=== PATIENT | female | born 1960 | race Hispanic/Latino ===

== ENCOUNTER 2020-06-10 09:20 | Outpatient (RCR) | payer OTHER | END 2020-06-17 | LOC: OT 09:20 | PROVIDERS: ATTEND Specialist | DX: M75.42 Impingement syndrome of left shoulder (principal) | CPT/HCPCS: 36415; 82948 ==

== ENCOUNTER 2020-07-10 15:51 | Outpatient (RCR) | payer OTHER | END 2020-07-17 | LOC: OT 15:51 | PROVIDERS: ATTEND Specialist | DX: M75.42 Impingement syndrome of left shoulder (principal); M25.512 Pain in left shoulder; M25.612 Stiffness of left shoulder, not elsewhere classified; R53.1 Weakness ==

== ENCOUNTER 2020-08-15 09:00 | Outpatient (RCR) | payer OTHER | END 2020-08-17 | LOC: PT 09:00 | PROVIDERS: ATTEND Specialist | DX: M75.42 Impingement syndrome of left shoulder (principal); M25.512 Pain in left shoulder; M25.612 Stiffness of left shoulder, not elsewhere classified; M62.81 Muscle weakness (generalized) ==

== ENCOUNTER 2020-09-03 08:57 | Outpatient (RCR) | payer OTHER | END 2020-09-16 | LOC: PT 08:57 | PROVIDERS: ATTEND Specialist | DX: M75.42 Impingement syndrome of left shoulder (principal); M25.512 Pain in left shoulder; M25.612 Stiffness of left shoulder, not elsewhere classified; M62.81 Muscle weakness (generalized) | CPT/HCPCS: 97139 ==